=== PATIENT | female | born 1975 | race African-American/Black ===

== ENCOUNTER 2016-05-21 10:32 | Emergency (ER) | payer BC, OTHER ==
[~2016-05-21] VITALS: Ht 172.7 cm; Wt 153.3 kg
[2016-05-21 10:50] VITALS: BP 169/120
[2016-05-21] MEDS ORDERED: IBUPROFEN 800 MG TABLET. PO ONE (11:45)
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
[2016-05-21] MEDS ORDERED: CYCL10TA2 PO (12:12)
== END 2016-05-21 12:21 | disposition home or self-care (01) ==
LOC: ER 10:32
DX: M54.5 Low back pain (principal); M25.562 Pain in left knee; M25.561 Pain in right knee; M54.6 Pain in thoracic spine; V89.2XXA Person injured in unspecified motor-vehicle accident, traffic, initial encounter; Y93.89 Activity, other specified; Y92.410 Unspecified street and highway as the place of occurrence of the external cause; Y99.8 Other external cause status
CPT/HCPCS: 73564; 99284

== ENCOUNTER 2017-04-19 06:16 | Inpatient (IN) | payer BC, OTHER ==
[2017-04-19] VITALS (13 sets, daily range): BP systolic 111–136; BP diastolic 54–83
[~2017-04-19] VITALS: Ht 175.3 cm; Wt 159.7 kg
[~2017-04-19 06:16] MED LIST: CYCL10TA2 PO
[2017-04-19] MEDS: fentaNYL PF VIAL 100 MCG/2 ML VIAL IV PRN ×6 (06:54→16:19)
[2017-04-19] MEDS ORDERED: KETOROLAC 30 MG/ML INJ. IV ONE ×2 (07:00→21:30)
[2017-04-19] MEDS ORDERED: ONDANSETRON PF 4 MG/2 ML VIAL. IV ONE (07:00)
[2017-04-19] MEDS ORDERED: IV NORMAL SALINE 1000ML BAG 1,000 ML IV ONE ×2 (07:00→10:45)
[2017-04-19 07:01] LABS: CALCIUM 9.3 mg/dL (8.5-10.1); CREATININE 0.8 mg/dL (0.6-1.0); GFR 96.1; POTASSIUM 3.9 mmol/L (3.5-5.1)
[2017-04-19 07:06] LABS: ALBUMIN 3.6 g/dL (3.4-5.0); ALBUMIN/GLOBULIN RATIO 0.9 (1.0-1.7); TOTAL BILIRUBIN 0.4 mg/dL (0.2-1.0); TOTAL PROTEIN 7.8 g/dL (6.4-8.2)
[2017-04-19 07:08] LABS: BASO # 0.1 x10^3/uL (0.0-0.2); BASO % 1 % (0-3); EOS % 3 % (0-3); HEMATOCRIT 44.9 % (36.0-47.0); HEMOGLOBIN 14.5 g/dL (12.0-15.5); LYMPH # 3.2 x10^3/uL (1.0-4.8); LYMPH % 22 % (24-48); MEAN CORPUSCULAR HEMOGLOBIN 28 pg (25-35); MEAN CORPUSCULAR HGB CONC 32 g/dL (31-37); MEAN CORPUSCULAR VOLUME 86 fL (79-100); MONO % 5 % (0-9); NEUT % 70 % (31-73); PLATELET COUNT 332 x10^3/uL (140-400); RED BLOOD COUNT 5.22 x10^6/uL (3.50-5.40); RED CELL DISTRIBUTION WIDTH 14.9 % (11.5-14.5); WHITE BLOOD COUNT 14.5 x10^3/uL (4.0-11.0)
[2017-04-19 07:39] LABS: BILIRUBIN,URINE NEGATIVE (NEG); GLUCOSE,URINE NEGATIVE (NEG); NITRITE,URINE NEGATIVE (NEG); PH,URINE 6.5; PROTEIN,URINE NEGATIVE (NEG-TRACE); UROBILINOGEN,URINE 0.2 mg/dL (0.2 mg/dL)
--- NOTE | 2017-04-19 07:43 | RAD ---
EXAM: ABDOMEN LTD HISTORY: RUQ PAIN COMPARISON: None. TECHNIQUE: Transverse and longitudinal sonography of the right upper quadrant is performed. FINDINGS: The pancreas is obscured by overlying bowel gas. IVC is patent. Liver is not entirely visualized, although demonstrates increased echogenicity suggesting steatosis. No focal liver lesion is seen within the provided images and visualized liver. Main portal vein demonstrates normal directional flow. The gallbladder contains a 2.8 cm calcified gallstone within the neck with posterior shadowing, does not appear mobile with repositioning of the patient. The gallbladder is not overly distended, however a gallbladder wall thickness of 5 mm is demonstrated. No pericholecystic free fluid is seen. Common bile duct measures 4 mm in diameter. Right kidney measures 11.4 x 4.5 x 5.5 cm, without evidence of hydronephrosis. No free fluid is seen within the provided images. IMPRESSION: 1. Calcified gallstone near the neck of the gallbladder, with thickened gallbladder wall, suggests cholecystitis. No pericholecystic fluid present. 2. Hepatic steatosis is suggested. Electronically signed by: Nanette Solo MD (04/19/2017 7:39 AM) [facility]
[2017-04-19 07:56] LABS: BACTERIA,URINE 0 /HPF (0-FEW); RBC,URINE 0 /HPF (0-2); SQUAMOUS EPITHELIAL CELL,UR MOD /LPF; WBC,URINE 0 /HPF (0-4)
[2017-04-19] MEDS ORDERED: PIPERACILLIN/TAZO IV Push 4.5 GM VIAL. IVP ONE (08:30)
[2017-04-19] MEDS ORDERED: PIPERACILLIN/TAZOBACTAM 4.5 GM in IV NORMAL SALINE 100ML 100 ML IV ONE (08:30)
[2017-04-19] MEDS ORDERED: ONDANSETRON PF 4 MG/2 ML VIAL. IV PRN ×3 (08:45→16:15)
[2017-04-19] MEDS: MORPHINE SULFATE 4 MG/ML DISP.SYRIN. IV PRN ×2 (09:36→16:01)
--- NOTE | 2017-04-19 10:38 | PDOC2 ---
CONSULT Date of Consult Date of Consult DATE: 04/19/17 TIME: 10:32 Reason for Consult Reason for Consult: RUQ pain Referring Physician Referring Physician: IPC Identification/Chief Complaint Chief Complaint increasing RUQ pain, nausea, vomiting Problems: Source Source: Chart review, Patient History of Present Illness Reason for Visit: Blayne is a 42 yo obese female who a couple of months ago presented to the ED with RUQ pain and nausea. Her evaluation revealed gall stones. Last night she began having increased pain. She returned to the ED and US confirmed the stones and showed some thickening of the gall bladder wall. We are asked to see her for cholecystectomy Past Surgical History Past Surgical History: Current Problem List Problem List Problems Medical Problems: (1) Acute cholecystitis Status: Acute Current Medications Current Medications Current Medications Sodium Chloride 1,000 ml @ 1,000 mls/hr 1X ONCE IV Last administered on 04/19 06:58; Start 04/19/17 at 07:00; Stop 04/19/17 at 07:59; Status DC Ondansetron HCl (Zofran) 4 mg 1X ONCE IV Last administered on 04/19/17 06:58 ; Start 04/19/17 at 07:00; Stop 04/19/17 at 07:01; Status DC Ketorolac Tromethamine (Toradol) 30 mg 1X ONCE IV Last administered on 06:58; Start 04/19/17 at 07:00; Stop 04/19/17 at 07:01; Status DC Fentanyl Citrate (Fentanyl 2ml Vial) 50 mcg PRN Q15MIN PRN IV PAIN GREATER THAN 3/10 Last administered on 04/19/17 07:52; Start 04/19/17 at 06:45; Stop 04/20/17 at 06:44 Piperacillin Sod/ Tazobactam Sod 4.5 gm/Sodium Chloride 100 ml @ 200 mls/hr 1X ONCE IV ; Start 04/19/17 at 08:30; Stop 04/19/17 at 08:59; Status UNV Piperacillin Sod/ Tazobactam Sod (Zosyn) 4.5 gm 1X ONCE IVP Last administered on 04/19/17 08:44; Start 04/19/17 at 08:30; Stop 04/19/17 at 08:31; Status DC Ondansetron HCl (Zofran) 4 mg PRN Q8HRS PRN IV NAUSEA/VOMITING Last administered on 04/19/17 08:54; Start 04/19/17 at 08:45; Stop 04/20/17 at 08 :44 Morphine Sulfate 4 mg PRN Q2HR PRN IV PAIN Last administered on 04/19/17 09: 36; Start 04/19/17 at 08:45; Stop 04/20/17 at 08:44 Active Scripts Active Cyclobenzaprine Hcl 10 Mg Tablet 10 Mg PO TID Allergies Allergies: Coded Allergies: No Known Drug Allergies (Unverified , 05/21/16) ROS Review of System negative with exception of present complaints Gastrointestinal: Yes Nausea, Yes Abdominal Pain Physical Exam General: Alert, Oriented X3, No acute distress, Other (rates pain as a "7") HEENT: Atraumatic Lungs: Normal air movement Heart: Regular rate Abdomen: Other (obese, soft, mildly TTP in the RUQ) Skin: No significant lesion Vitals VITALS Vital Signs Date Time Temp Pulse Resp B/P (MAP) Pulse Ox O2 Delivery O2 Flow Rate FiO2 04/19/17 10:06 16 98 Room Air 04/19/17 10:04 97.7 63 136/80 (98) 97.7 Labs Labs Laboratory Tests Test 04/19/17 06:43 04/19/17 07:30 White Blood Count 14.5 x10^3/uL (4.0-11.0) Red Blood Count 5.22 x10^6/uL (3.50-5.40) Hemoglobin 14.5 g/dL (12.0-15.5) Hematocrit 44.9 % (36.0-47.0) Mean Corpuscular Volume 86 fL (79-100) Mean Corpuscular Hemoglobin 28 pg (25-35) Mean Corpuscular Hemoglobin Concent 32 g/dL (31-37) Red Cell Distribution Width 14.9 % (11.5-14.5) Platelet Count 332 x10^3/uL (140-400) Neutrophils (%) (Auto) 70 % (31-73) Lymphocytes (%) (Auto) 22 % (24-48) Monocytes (%) (Auto) 5 % (0-9) Eosinophils (%) (Auto) 3 % (0-3) Basophils (%) (Auto) 1 % (0-3) Neutrophils # (Auto) 10.1 x10^3uL (1.8-7.7) Lymphocytes # (Auto) 3.2 x10^3/uL (1.0-4.8) Monocytes # (Auto) 0.7 x10^3/uL (0.0-1.1) Eosinophils # (Auto) 0.4 x10^3/uL (0.0-0.7) Basophils # (Auto) 0.1 x10^3/uL (0.0-0.2) Sodium Level 144 mmol/L (136-145) Potassium Level 3.9 mmol/L (3.5-5.1) Chloride Level 105 mmol/L (98-107) Carbon Dioxide Level 30 mmol/L (21-32) Anion Gap 9 (6-14) Blood Urea Nitrogen 15 mg/dL (7-20) Creatinine 0.8 mg/dL (0.6-1.0) Estimated GFR (Cockcroft-Gault) 96.1 BUN/Creatinine Ratio 19 (6-20) Glucose Level 103 mg/dL (70-99) Calcium Level 9.3 mg/dL (8.5-10.1) Total Bilirubin 0.4 mg/dL (0.2-1.0) Aspartate Amino Transf (AST/SGOT) 13 U/L (15-37) Alanine Aminotransferase (ALT/SGPT) 19 U/L (14-59) Alkaline Phosphatase 86 U/L (46-116) Troponin I Quantitative < 0.017 ng/mL (0.000-0.055) Total Protein 7.8 g/dL (6.4-8.2) Albumin 3.6 g/dL (3.4-5.0) Albumin/Globulin Ratio 0.9 (1.0-1.7) Lipase 77 U/L (73-393) Urine Collection Type Unknown Urine Color Yellow Urine Clarity Turbid Urine pH 6.5 Urine Specific [place] 1.020 Urine Protein Negative mg/dL (NEG-TRACE) Urine Glucose (UA) Negative mg/dL (NEG) Urine Ketones (Stick) Negative mg/dL (NEG) Urine Blood Trace (NEG) Urine Nitrite Negative (NEG) Urine Bilirubin Negative (NEG) Urine Urobilinogen Dipstick 0.2 mg/dL (0.2 mg/dL) Urine Leukocyte Esterase Negative (NEG) Urine RBC 0 /HPF (0-2) Urine WBC 0 /HPF (0-4) Urine Squamous Epithelial Cells Mod /LPF Urine Bacteria 0 /HPF (0-FEW) Laboratory Tests Test 04/19/17 06:43 04/19/17 07:30 White Blood Count 14.5 x10^3/uL (4.0-11.0) Red Blood Count 5.22 x10^6/uL (3.50-5.40) Hemoglobin 14.5 g/dL (12.0-15.5) Hematocrit 44.9 % (36.0-47.0) Mean Corpuscular Volume 86 fL (79-100) Mean Corpuscular Hemoglobin 28 pg (25-35) Mean Corpuscular Hemoglobin Concent 32 g/dL (31-37) Red Cell Distribution Width 14.9 % (11.5-14.5) Platelet Count 332 x10^3/uL (140-400) Neutrophils (%) (Auto) 70 % (31-73) Lymphocytes (%) (Auto) 22 % (24-48) Monocytes (%) (Auto) 5 % (0-9) Eosinophils (%) (Auto) 3 % (0-3) Basophils (%) (Auto) 1 % (0-3) Neutrophils # (Auto) 10.1 x10^3uL (1.8-7.7) Lymphocytes # (Auto) 3.2 x10^3/uL (1.0-4.8) Monocytes # (Auto) 0.7 x10^3/uL (0.0-1.1) Eosinophils # (Auto) 0.4 x10^3/uL (0.0-0.7) Basophils # (Auto) 0.1 x10^3/uL (0.0-0.2) Sodium Level 144 mmol/L (136-145) Potassium Level 3.9 mmol/L (3.5-5.1) Chloride Level 105 mmol/L (98-107) Carbon Dioxide Level 30 mmol/L (21-32) Anion Gap 9 (6-14) Blood Urea Nitrogen 15 mg/dL (7-20) Creatinine 0.8 mg/dL (0.6-1.0) Estimated GFR (Cockcroft-Gault) 96.1 BUN/Creatinine Ratio 19 (6-20) Glucose Level 103 mg/dL (70-99) Calcium Level 9.3 mg/dL (8.5-10.1) Total Bilirubin 0.4 mg/dL (0.2-1.0) Aspartate Amino Transf (AST/SGOT) 13 U/L (15-37) Alanine Aminotransferase (ALT/SGPT) 19 U/L (14-59) Alkaline Phosphatase 86 U/L (46-116) Troponin I Quantitative < 0.017 ng/mL (0.000-0.055) Total Protein 7.8 g/dL (6.4-8.2) Albumin 3.6 g/dL (3.4-5.0) Albumin/Globulin Ratio 0.9 (1.0-1.7) Lipase 77 U/L (73-393) Urine Collection Type Unknown Urine Color Yellow Urine Clarity Turbid Urine pH 6.5 Urine Specific [place] 1.020 Urine Protein Negative mg/dL (NEG-TRACE) Urine Glucose (UA) Negative mg/dL (NEG) Urine Ketones (Stick) Negative mg/dL (NEG) Urine Blood Trace (NEG) Urine Nitrite Negative (NEG) Urine Bilirubin Negative (NEG) Urine Urobilinogen Dipstick 0.2 mg/dL (0.2 mg/dL) Urine Leukocyte Esterase Negative (NEG) Urine RBC 0 /HPF (0-2) Urine WBC 0 /HPF (0-4) Urine Squamous Epithelial Cells Mod /LPF Urine Bacteria 0 /HPF (0-FEW) Images Images US reviewed Assessment/Plan Assessment/Plan cholelithiasis with acute cholecystitis for l/s lloyd today Explained risks to Blayne and her including but not limited to bleeding, infection, injury to bowel, liver or bile ducts with resultant bile leak or bile blockage. Also possible need for an "open" procedure or diarrhea post op. She will proceed. Thanks for consult MOLLY WHALEN MD Apr 19, 2017 10:38
[2017-04-19] MEDS: ceFAZolin SODIUM 3 GM in IV DEXTROSE 5% 100 ML IV PRN ×3 (11:40→13:40)
[2017-04-19] MEDS ORDERED: ROCURONIUM 50 MG/5 ML VIAL. ONE (12:49)
[2017-04-19] MEDS ORDERED: fentaNYL PF VIAL 100 MCG/2 ML VIAL ONE ×3 (12:49→16:08)
[2017-04-19] MEDS ORDERED: LIDOCAINE 2% PF Vial for OR 5 ML VIAL. ONE ×2 (12:49→15:18)
[2017-04-19] MEDS ORDERED: ONDANSETRON PF 4 MG/2 ML VIAL. ONE (12:49)
[2017-04-19] MEDS ORDERED: SEVOFLURANE 31 TO 60 MINUTES. IH ONE (12:49)
[2017-04-19] MEDS ORDERED: PROPOFOL 20 ML IV ONE (12:50)
[2017-04-19] MEDS ORDERED: DEXAMETHASONE SOD PHOS 20 MG/5 ML VIAL. ONE (12:50)
[2017-04-19] MEDS ORDERED: BUPIVAC MPF-EPI 0.5%-1:200000 30 ML VIAL. ONE (13:35)
[2017-04-19] MEDS ORDERED: IOHEXOL 300 MG/ML 100ML VIAL. ONE (13:35)
[2017-04-19] MEDS ORDERED: GLUCAGON,HUMAN RECOMBINANT 1 MG/ML VIAL. ONE (13:35)
[2017-04-19] MEDS ORDERED: SURGICEL HEMOSTAT 4X8 EACH. ONE (13:36)
[2017-04-19] MEDS ORDERED: GLYCOPYRROLATE 1 MG/5 ML VIAL. ONE (14:21)
[2017-04-19] MEDS ORDERED: NEOSTIGMINE 10 MG/10 ML VIAL. ONE (14:21)
--- NOTE | 2017-04-19 14:38 | PHYS DOC ---
Past Medical History Past Medical History: No Pertinent History Past Surgical History: , Tubal ligation, Other Additional Past Surgical Histo: LEFT ACL REPAIR Alcohol Use: Occasionally Drug Use: None Adult General Chief Complaint Chief Complaint: ABDOMINAL PAIN HPI HPI Patient is a 42 year old female who presents with abdominal pain. The patient reports waking up overnight with severe right upper quadrant & epigastric pain. She vomited once and still feels nauseated. She denies fevers or chills, hematemesis, diarrhea or constipation, hematochezia or melena, dysuria or hematuria. Reports previous history of similar symptoms and was told that she had gallstones but had not been able to follow-up with surgery or schedule cholecystectomy. Denies past medical history, history of and tubal ligation. PCP is at the [facility]. Review of Systems Review of Systems Constitutional: Denies fever or chills HENT: Denies nasal congestion or sore throat Respiratory: Denies cough or shortness of breath Cardiovascular: Denies chest pain or edema GI: Reports abdominal pain, nausea, vomiting, denies bloody stools or diarrhea : Denies dysuria or hematuria Musculoskeletal: Denies back pain or joint pain Integument: Denies rash or skin lesions Neurologic: Denies headache, focal weakness or sensory changes All other systems were reviewed and found to be within normal limits, except as documented in this note. Current Medications Current Medications Current Medications Medications (Trade) Dose Ordered Sig/Wes Start Time Stop Time Status Last Admin Dose Admin Bupivacaine HCl/ Epinephrine Bitart (Sensorcain-Mpf Epi 0.5%-1:033170) 30 ml STK-MED ONCE 04/19/17 13:35 04/19/17 13:36 DC 04/19/17 13:59 10 ML Cefazolin Sodium 3 gm/Dextrose 100 ml @ 200 mls/hr 1X PREOP PRN 04/19/17 11:30 04/20/17 11:29 04/19/17 11:40 200 MLS/HR Cellulose 1 each STK-MED ONCE 04/19/17 13:36 04/19/17 13:37 DC Dexamethasone Sodium Phosphate (Decadron) 20 mg STK-MED ONCE 04/19/17 12:50 04/19/17 12:51 DC Fentanyl Citrate (Fentanyl 2ml Vial) 100 mcg STK-MED ONCE 04/19/17 14:21 12/23/17 14:22 DC Glucagon (Glucagen) 1 mg STK-MED ONCE 04/19/17 13:35 04/19/17 13:36 DC Glycopyrrolate (Robinul) 1 mg STK-MED ONCE 04/19/17 14:21 04/19/17 14:22 DC Iohexol (Omnipaque 300 Mg/ml) 100 ml STK-MED ONCE 04/19/17 13:35 04/19/17 13:36 DC 04/19/17 13:59 10 ML Ketorolac Tromethamine (Toradol) 30 mg 1X ONCE 04/19/17 07:00 04/19/17 07:01 DC 04/19/17 06:58 30 MG Lidocaine HCl (Lidocaine Pf 2% Vial) 5 ml STK-MED ONCE 04/19/17 12:49 04/19/17 12:50 DC Morphine Sulfate 4 mg PRN Q2HR PRN 04/19/17 08:45 04/20/17 08:44 04/19/17 09:36 4 MG Neostigmine Methylsulfate (Bloxiverz) 10 mg STK-MED ONCE 04/19/17 14:21 04/19/17 14:22 DC Ondansetron HCl (Zofran) 4 mg STK-MED ONCE 04/19/17 12:49 04/19/17 12:50 DC Piperacillin Sod/ Tazobactam Sod (Zosyn) 4.5 gm 1X ONCE 04/19/17 08:30 04/19/17 08:31 DC 04/19/17 08:44 4.5 GM Piperacillin Sod/ Tazobactam Sod 4.5 gm/Sodium Chloride 100 ml @ 200 mls/hr 1X ONCE 04/19/17 08:30 04/19/17 08:59 UNV Propofol 20 ml @ As Directed STK-MED ONCE 04/19/17 12:50 04/19/17 12:51 DC Rocuronium [place] (Zemuron) 50 mg STK-MED ONCE 04/19/17 12:49 04/19/17 12:50 DC Sevoflurane (Ultane) 30 ml STK-MED ONCE 04/19/17 12:49 04/19/17 12:50 DC Sodium Chloride 1,000 ml @ 125 mls/hr 1X ONCE 04/19/17 10:45 04/19/17 18:44 04/19/17 11:03 125 MLS/HR Allergies Allergies Allergies Coded Allergies Type Severity Reaction Last Updated Verified No Known Drug Allergies 05/21/16 No Physical Exam Physical Exam Constitutional: Morbidly obese, no acute distress, non-toxic appearance. HENT: Normocephalic, atraumatic, bilateral external ears normal, oropharynx moist, nose normal. Eyes: conjunctiva normal, no discharge. Neck: supple, no stridor. Cardiovascular: RRR, no murmurs, no edema. Lungs & Thorax: LCTAB, no wheezing, no respiratory distress. Abdomen: soft, right upper quadrant and epigastric tenderness without rebound or guarding, no masses or pulsatile masses, nondistended. Skin: Warm, dry, no erythema, no rash. Back: No CVA tenderness. Extremities: No tenderness, no edema. Neurologic: Alert and oriented X 3, no focal deficits noted. Psychologic: Affect normal, judgement normal, mood normal. Current Patient Data Vital Signs Vital Signs Date Time Temp Pulse Resp B/P (MAP) Pulse Ox O2 Delivery O2 Flow Rate FiO2 04/19/17 13:01 97.2 77 20 144/97 100 Room Air 97.2 Lab Values Laboratory Tests Test 04/19/17 06:43 04/19/17 07:30 White Blood Count 14.5 x10^3/uL (4.0-11.0) H Red Blood Count 5.22 x10^6/uL (3.50-5.40) Hemoglobin 14.5 g/dL (12.0-15.5) Hematocrit 44.9 % (36.0-47.0) Mean Corpuscular Volume 86 fL (79-100) Mean Corpuscular Hemoglobin 28 pg (25-35) Mean Corpuscular Hemoglobin Concent 32 g/dL (31-37) Red Cell Distribution Width 14.9 % (11.5-14.5) H Platelet Count 332 x10^3/uL (140-400) Neutrophils (%) (Auto) 70 % (31-73) Lymphocytes (%) (Auto) 22 % (24-48) L Monocytes (%) (Auto) 5 % (0-9) Eosinophils (%) (Auto) 3 % (0-3) Basophils (%) (Auto) 1 % (0-3) Neutrophils # (Auto) 10.1 x10^3uL (1.8-7.7) H Lymphocytes # (Auto) 3.2 x10^3/uL (1.0-4.8) Monocytes # (Auto) 0.7 x10^3/uL (0.0-1.1) Eosinophils # (Auto) 0.4 x10^3/uL (0.0-0.7) Basophils # (Auto) 0.1 x10^3/uL (0.0-0.2) Sodium Level 144 mmol/L (136-145) Potassium Level 3.9 mmol/L (3.5-5.1) Chloride Level 105 mmol/L (98-107) Carbon Dioxide Level 30 mmol/L (21-32) Anion Gap 9 (6-14) Blood Urea Nitrogen 15 mg/dL (7-20) Creatinine 0.8 mg/dL (0.6-1.0) Estimated GFR (Cockcroft-Gault) 96.1 BUN/Creatinine Ratio 19 (6-20) Glucose Level 103 mg/dL (70-99) H Calcium Level 9.3 mg/dL (8.5-10.1) Total Bilirubin 0.4 mg/dL (0.2-1.0) Aspartate Amino Transferase (AST) 13 U/L (15-37) L Alanine Aminotransferase (ALT) 19 U/L (14-59) Alkaline Phosphatase 86 U/L (46-116) Troponin I Quantitative < 0.017 ng/mL (0.000-0.055) Total Protein 7.8 g/dL (6.4-8.2) Albumin 3.6 g/dL (3.4-5.0) Albumin/Globulin Ratio 0.9 (1.0-1.7) L Lipase 77 U/L (73-393) Urine Collection Type Unknown Urine Color Yellow Urine Clarity Turbid Urine pH 6.5 Urine Specific [place] 1.020 Urine Protein Negative mg/dL (NEG-TRACE) Urine Glucose (UA) Negative mg/dL (NEG) Urine Ketones (Stick) Negative mg/dL (NEG) Urine Blood Trace (NEG) Urine Nitrite Negative (NEG) Urine Bilirubin Negative (NEG) Urine Urobilinogen Dipstick 0.2 mg/dL (0.2 mg/dL) Urine Leukocyte Esterase Negative (NEG) Urine RBC 0 /HPF (0-2) Urine WBC 0 /HPF (0-4) Urine Squamous Epithelial Cells Mod /LPF Urine Bacteria 0 /HPF (0-FEW) Laboratory Tests 04/19/17 06:43 Laboratory Tests 04/19/17 06:43 EKG EKG Interpreted by me: Normal sinus rhythm rate 75, no acute ST or T wave changes, normal intervals, no ectopy.[] Radiology/Procedures Radiology/Procedures PROCEDURE: ABDOMEN LTD EXAM: ABDOMEN LTD HISTORY: RUQ PAIN COMPARISON: None. TECHNIQUE: Transverse and longitudinal sonography of the right upper quadrant is performed. FINDINGS: The pancreas is obscured by overlying bowel gas. IVC is patent. Liver is not entirely visualized, although demonstrates increased echogenicity suggesting steatosis. No focal liver lesion is seen within the provided images and visualized liver. Main portal vein demonstrates normal directional flow. The gallbladder contains a 2.8 cm calcified gallstone within the neck with posterior shadowing, does not appear mobile with repositioning of the patient. The gallbladder is not overly distended, however a gallbladder wall thickness of 5 mm is demonstrated. No pericholecystic free fluid is seen. Common bile duct measures 4 mm in diameter. Right kidney measures 11.4 x 4.5 x 5.5 cm, without evidence of hydronephrosis. No free fluid is seen within the provided images. IMPRESSION: 1. Calcified gallstone near the neck of the gallbladder, with thickened gallbladder wall, suggests cholecystitis. No pericholecystic fluid present. 2. Hepatic steatosis is suggested. Electronically signed by: Kristen Solo MD (04/19/2017 7:39 AM) [facility] DICTATED and SIGNED BY: KRISTEN SOLO MD DATE: 04/19/17 0736[] Course & Med Decision Making Course & Med Decision Making Pertinent Labs and Imaging studies reviewed. (See chart for details) The patient presents with abdominal pain and vomiting. Gave IV fluids, Zofran, pain medication. Labs show leukocytosis, normal LFTs, normal lipase. Ultrasound consistent with acute cholecystitis. Administered Zosyn. Consulted with Dr. Baez who plans to take the patient to surgery today. Will keep nothing by mouth. Discussed with Dr. freedman who agrees to admit to inpatient status. Patient aware of plan and agrees. She is admitted in stable condition. [] Dragon Disclaimer Dragon Disclaimer This electronic medical record was generated, in whole or in part, using a voice recognition dictation system. Departure Departure Impression: Primary Impression: Acute cholecystitis Disposition: ADMITTED INPATIENT Admitting Physician: Bhavya Freedman Condition: STABLE LINDSAY WHITE MD Apr 19, 2017 14:38
--- NOTE | 2017-04-19 15:35 | RAD ---
CHOLANGIOGRAM INTRAOPERATIVE Clinical Indication: ACUTE CHOLECYSTITIS Comparison: None. Findings: Fluoroscopy provided by the technologist. Total fluoroscopy time 11 seconds. 3 fluoroscopic spot images. Injection of contrast into cystic duct remnant. There is opacification of intrahepatic and extrahepatic bile ducts. No filling defect is seen in the common bile duct. There is spillage into the duodenum. IMPRESSION: No filling defect in the common bile duct.
[2017-04-19] MEDS ORDERED: IV RINGERS,LACTATED 1000ML 1,000 ML IV SCH (15:52)
[2017-04-19] MEDS ORDERED: HYDROmorphone 2 MG/ML VIAL IV PRN (16:00)
[2017-04-19] MEDS ORDERED: MORPHINE SULFATE 2 MG/ML DISP.SYRIN. IV PRN (16:00)
[2017-04-19] MEDS ORDERED: fentaNYL PF VIAL 100 MCG/2 ML VIAL IV PRN ×2 (16:00)
[2017-04-19] MEDS ORDERED: PROCHLORPERAZINE 10 MG/2 ML VIAL. IV PRN (16:00)
[2017-04-19] MEDS ORDERED: LIDOCAINE 1% PF 2 ML VIAL. ID PRN (16:00)
[2017-04-19] MEDS ORDERED: oxyCODONE/APAP 5/325 1 TAB TABLET PO PRN (16:15)
[2017-04-19] MEDS ORDERED: diphenhydrAMINE 50 MG/ML VIAL IV PRN (16:15)
[2017-04-19] MEDS ORDERED: diphenhydrAMINE HCL 25 MG CAPSULE PO PRN (16:15)
[2017-04-19] MEDS ORDERED: 0.9 % SODIUM CHLORIDE 10 ML DISP.SYRIN. IV PRN (16:15)
[2017-04-19] MEDS ORDERED: DEXTROSE 50% 25 GM / 50ML DISP.SYRIN. IV PRN (16:15)
--- NOTE | 2017-04-19 16:23 | PDOC ---
BRIEF OPERATIVE NOTE Date: Apr 19, 2017 Pre-Op Diagnosis cholelithiasis with acute cholecystitis Post-Op Diagnosis same Procedure Performed l/s cholecystectomy with cholangiograms Surgeon Nestor Anesthesia Type: General Blood Loss 200cc IV Fluid 1700cc Specimens Obtained gall bladder Findings acute/chronic cholecystitis, normal grams, short cystic duct, rich blood supply Complications none MOLLY WHALEN MD Apr 19, 2017 16:23
[2017-04-19] MEDS: POTASSIUM CL 20MEQ-0.45% NACL 1,000 ML IV SCH (17:02)
[2017-04-19] MEDS: HYDROmorphone 2 MG/ML VIAL IV PRN (17:03)
--- NOTE | 2017-04-19 20:30 | OP ---
DATE OF SURGERY: 04/19/2017 PREOPERATIVE DIAGNOSIS: Cholelithiasis with acute cholecystitis. POSTOPERATIVE DIAGNOSIS: Cholelithiasis with acute cholecystitis. PROCEDURE: Laparoscopic cholecystectomy with cholangiogram. SURGEON: Jabari Whalen MD ANESTHESIA: General endotracheal. BLOOD LOSS: 200 mL. INTRAVENOUS FLUID: 1700 mL. INDICATIONS: The patient is an obese (BMI of 51) female with right upper quadrant pain and known cholelithiasis. Her ultrasound earlier showed a possible impacted stone in the neck of the gallbladder. She is brought for cholecystectomy. OPERATIVE FINDINGS: The liver was generous and smooth. The gallbladder was acutely/chronically inflamed with a shortened cystic duct. Visual inspection of the remainder of the abdomen showed only some omental adhesions in the low midline from previous sections. DESCRIPTION OF PROCEDURE: The patient brought to the operating suite, given a general endotracheal anesthetic and the abdomen prepped and draped in usual sterile fashion. A supraumbilical incision was infiltrated with local anesthetic, incised and a 5 mm Visiport used to safely gain access into the abdominal cavity (a 150 mm port was used). Pneumoperitoneum established, camera inserted and inspection carried out with results as noted above. With the table in reverse Trendelenburg rolled to the left, the epigastric, midclavicular, and lateral ports were placed under direct vision. The gallbladder was grasped with a bulldog grasper and retracted superolaterally. Adhesions were taken down carefully to expose the gallbladder, taking care to avoid injury to the adjacent bowel. The shortened cystic duct and the cystic artery were identified. The duct was clipped on the gallbladder side. Cholangiograms were made. These were normal. In light of this, the catheter was removed and the cystic duct was clipped x 2, taking care to avoid injury or compromise of the common duct. The cystic artery was carefully freed from the bile duct, isolated, clipped and divided. The gallbladder was then carefully freed off the common duct and from the gallbladder fossa. There were vessels encountered along the fossa, which were controlled with medium large clips. We were able to control the blood supply in its entirety to the gallbladder and the gallbladder was freed from the bed and placed in an EndoCatch bag. Good hemostasis was present. To assure no further bleeding, the gallbladder bed was treated with FloSeal and a piece of Surgicel. A 19-[place] round Eduard drain was brought through the epigastric port, out the lateral port, sewn on skin with a silk stitch and left in the subhepatic space for postoperative drainage. Again, we checked the fossa and it appeared to be dry. Table returned to level. Gallbladder delivered through the epigastric incision. Epigastric incision closed with interrupted 0 Vicryl suture. No bleeding seen from the epigastric closure, from the drain site or from the midclavicular port site after its removal. Abdomen decompressed, camera slowly removed, no bleeding seen. Skin incisions closed with skin tamiko. Sterile dressings applied. The patient awakened from anesthetic and taken to the recovery room in satisfactory condition. JABARI WHALEN MD DR: SHEKHAR/celena JOB#: [id number] / [id number]
[2017-04-19] MEDS: DOCUSATE SODIUM 100 MG CAPSULE. PO SCH (20:38)
--- NOTE | 2017-04-19 21:05 | EKG ---
[facility] [address] [place] [id number] Test Date: 2017-04-19 Test Time: 06:47:06 Pat Name: DARREN DOSHI Department: Room: Gender: F Community Health Counselor: : 1975 Requested By: LINDSAY WHITE Order Number: [id number] Reading MD: Measurements Intervals Wilson Rate: 75 P: 33 DC: 166 QRS: 24 QRSD: 80 T: 15 QT: 370 QTc: 416 Interpretive Statements SINUS RHYTHM NO SPECIFIC ECG ABNORMALITIES RI6.01 No previous ECG available for comparison
--- NOTE | 2017-04-19 21:13 | PDOC1 ---
History and Physical Date of Admission Date of Admission DATE: 04/19/17 TIME: 21:08 Identification/Chief Complaint Chief Complaint abdominal pain Problems: Source Source: Chart review, Patient History of Present Illness History of Present Illness Ms. Fernandez, is a 42 year old female admit from ER with acute and severe abdominal pain. The patient reports waking up overnight with severe right upper quadrant & epigastric pain. IMaging showed acute lloyd, taken to the OR by Dr. Baez this AM pain this PM, pain 7/10, soreness, ongoing pain, not improved with 0.5 mg IV dilaudid hourly no nausea now, marked this AM. also denies fevers or chills, hematemesis, diarrhea or constipation, hematochezia or melena, dysuria or hematuria. prior similar symptoms, pain is now soreness, not acutely sharp Past Medical History Cardiovascular: No pertinent hx Pulmonary: No pertinent hx Heme/Onc: No pertinent hx Hepatobiliary: No pertinent hx Psych: No pertinent hx Musculoskeletal: low back pain ENT: No pertinent hx Renal/: No pertinent hx Past Surgical History Past Surgical History: Family History Family History: Hypertension Social History Smoke: No ALCOHOL: none Drugs: None Current Problem List Problem List Problems Medical Problems: (1) Acute cholecystitis Status: Acute (2) Acute cholecystitis Status: Acute Problems: Current Medications Current Medications Current Medications Sodium Chloride 1,000 ml @ 1,000 mls/hr 1X ONCE IV Last administered on 04/19 06:58; Start 04/19/17 at 07:00; Stop 04/19/17 at 07:59; Status DC Ondansetron HCl (Zofran) 4 mg 1X ONCE IV Last administered on 04/19/17 06:58 ; Start 04/19/17 at 07:00; Stop 04/19/17 at 07:01; Status DC Ketorolac Tromethamine (Toradol) 30 mg 1X ONCE IV Last administered on 06:58; Start 04/19/17 at 07:00; Stop 04/19/17 at 07:01; Status DC Fentanyl Citrate (Fentanyl 2ml Vial) 50 mcg PRN Q15MIN PRN IV PAIN GREATER THAN 3/10 Last administered on 04/19/17 07:52; Start 04/19/17 at 06:45; Stop 04/20/17 at 06:44 Piperacillin Sod/ Tazobactam Sod 4.5 gm/Sodium Chloride 100 ml @ 200 mls/hr 1X ONCE IV ; Start 04/19/17 at 08:30; Stop 04/19/17 at 08:59; Status UNV Piperacillin Sod/ Tazobactam Sod (Zosyn) 4.5 gm 1X ONCE IVP Last administered on 04/19/17 08:44; Start 04/19/17 at 08:30; Stop 04/19/17 at 08:31; Status DC Ondansetron HCl (Zofran) 4 mg PRN Q8HRS PRN IV NAUSEA/VOMITING Last administered on 04/19/17 08:54; Start 04/19/17 at 08:45; Stop 04/20/17 at 08 :44 Morphine Sulfate 4 mg PRN Q2HR PRN IV PAIN Last administered on 04/19/17 16: 01; Start 04/19/17 at 08:45; Stop 04/20/17 at 08:44 Cefazolin Sodium 3 gm/Dextrose 100 ml @ 200 mls/hr 1X PREOP PRN IV PER PROTOCOL Last administered on 04/19/17 13:40; Start 04/19/17 at 11:30; Stop 04/20/17 at 11:29 Fentanyl Citrate (Fentanyl 2ml Vial) 100 mcg PRN Q2HR PRN IV PAIN Last administered on 04/19/17 16:19; Start 04/19/17 at 10:45 Sodium Chloride 1,000 ml @ 125 mls/hr 1X ONCE IV Last administered on 11:03; Start 04/19/17 at 10:45; Stop 04/19/17 at 18:44; Status DC Rocuronium [place] (Zemuron) 50 mg STK-MED ONCE .ROUTE ; Start 04/19/17 at 12: 49; Stop 04/19/17 at 12:50; Status DC Fentanyl Citrate (Fentanyl 2ml Vial) 100 mcg STK-MED ONCE .ROUTE ; Start at 12:49; Stop 04/19/17 at 12:50; Status DC Sevoflurane (Ultane) 30 ml STK-MED ONCE IH ; Start 04/19/17 at 12:49; Stop at 12:50; Status DC Ondansetron HCl (Zofran) 4 mg STK-MED ONCE .ROUTE ; Start 04/19/17 at 12:49; Stop 04/19/17 at 12:50; Status DC Lidocaine HCl (Lidocaine Pf 2% Vial) 5 ml STK-MED ONCE .ROUTE ; Start 04/19/17 at 12:49; Stop 04/19/17 at 12:50; Status DC Dexamethasone Sodium Phosphate (Decadron) 20 mg STK-MED ONCE .ROUTE ; Start at 12:50; Stop 04/19/17 at 12:51; Status DC Propofol 20 ml @ As Directed STK-MED ONCE IV ; Start 04/19/17 at 12:50; Stop 04/19/17 at 12:51; Status DC Bupivacaine HCl/ Epinephrine Bitart (Sensorcain-Mpf Epi 0.5%-[id number]) 30 ml STK -MED ONCE .ROUTE Last administered on 04/19/17 13:59; Start 04/19/17 at 13: 35; Stop 04/19/17 at 13:36; Status DC Glucagon (Glucagen) 1 mg STK-MED ONCE .ROUTE ; Start 04/19/17 at 13:35; Stop 04/19/17 at 13:36; Status DC Iohexol (Omnipaque 300 Mg/ml) 100 ml STK-MED ONCE .ROUTE Last administered on 04/19/17 13:59; Start 04/19/17 at 13:35; Stop 04/19/17 at 13:36; Status DC Cellulose 1 each STK-MED ONCE .ROUTE Last administered on 04/19/17 13:59; Start 04/19/17 at 13:36; Stop 04/19/17 at 13:37; Status DC Neostigmine Methylsulfate (Bloxiverz) 10 mg STK-MED ONCE .ROUTE ; Start at 14:21; Stop 04/19/17 at 14:22; Status DC Fentanyl Citrate (Fentanyl 2ml Vial) 100 mcg STK-MED ONCE .ROUTE ; Start at 14:21; Stop 04/19/17 at 14:22; Status DC Glycopyrrolate (Robinul) 1 mg STK-MED ONCE .ROUTE ; Start 04/19/17 at 14:21; Stop 04/19/17 at 14:22; Status DC Lidocaine HCl (Lidocaine Pf 2% Vial) 5 ml STK-MED ONCE .ROUTE ; Start 04/19/17 at 15:18; Stop 04/19/17 at 15:19; Status DC Ondansetron HCl (Zofran) 4 mg PRN Q6HRS PRN IV NAUSEA/VOMITING; Start at 16:00; Stop 04/20/17 at 15:59 Fentanyl Citrate (Fentanyl 2ml Vial) 25 mcg PRN Q5MIN PRN IV MILD PAIN; Start 04/19/17 at 16:00; Stop 04/20/17 at 15:59 Fentanyl Citrate (Fentanyl 2ml Vial) 50 mcg PRN Q5MIN PRN IV MODERATE TO SEVERE PAIN; Start 04/19/17 at 16:00; Stop 04/20/17 at 15:59 Morphine Sulfate 1 mg PRN Q10MIN PRN IV SEVERE PAIN; Start 04/19/17 at 16:00; Stop 04/20/17 at 15:59 Ringer's Solution 1,000 ml @ 30 mls/hr Q24H IV ; Start 04/19/17 at 15:52; Stop 04/20/17 at 03:51 Lidocaine HCl (Xylocaine-Mpf 1% Vial) 2 ml 1X PRN PRN ID IV START; Start 04/19 at 16:00; Stop 04/20/17 at 15:59 Hydromorphone HCl (Dilaudid) 0.5 mg PRN Q10MIN PRN IV SEV PAIN, Second choice Last administered on 04/19/17t 20:44; Start 04/19/17 at 16:00; Stop 04/19/17 at 21:06; Status DC Prochlorperazine Edisylate (Compazine) 5 mg PACU PRN PRN IV NAUSEA, MRX1; Start 04/19/17 at 16:00; Stop 04/20/17 at 15:59 Fentanyl Citrate (Fentanyl 2ml Vial) 100 mcg STK-MED ONCE .ROUTE ; Start at 16:08; Stop 04/19/17 at 16:09; Status DC Diphenhydramine HCl (Benadryl) 25 mg PRN Q6HRS PRN PO ITCHING; Start 04/19/17 at 16:15 Diphenhydramine HCl (Benadryl) 25 mg PRN Q6HRS PRN IV ITCHING; Start 04/19/17 at 16:15 Enoxaparin Sodium (Lovenox 60mg Syringe) 60 mg Q12HR SQ ; Start 04/20/17 at 09: 00 Sodium Chloride (Normal Saline Flush) 3 ml QSHIFT PRN IV AFTER MEDS AND BLOOD DRAWS; Start 04/19/17 at 16:15 Potassium Chloride/Sodium Chloride 1,000 ml @ 100 mls/hr Q10H IV Last administered on 04/19/17 17:02; Start 04/19/17 at 16:06 Dextrose (Dextrose 50%-Water Syringe) 12.5 gm PRN Q15MIN PRN IV SEE COMMENTS; Start 04/19/17 at 16:15 Oxycodone/ Acetaminophen (Percocet 5/325) 1 tab PRN Q4HRS PRN PO MILD PAIN, 1ST CHOICE; Start 04/19/17 at 16:15 Oxycodone/ Acetaminophen (Percocet 5/325) 2 tab PRN Q4HRS PRN PO MODERATE PAIN , SEVERE PAIN; Start 04/19/17 at 16:15 Hydromorphone HCl (Dilaudid) 1 mg Q3HRS PRN IV PAIN Last administered on 17:03; Start 04/19/17 at 16:15 Docusate Sodium (Colace) 100 mg BID PO Last administered on 04/19/17 20:38; Start 04/19/17 at 21:00 Ondansetron HCl (Zofran) 4 mg PRN Q6HRS PRN IV NAUESA, 1ST CHOICE; Start 04/19 at 16:15 Hydromorphone HCl (Dilaudid) 1 mg PRN Q4HRS PRN IVP SEVERE PAIN; Start at 21:15 Ketorolac Tromethamine (Toradol) 30 mg 1X ONCE IV ; Start 04/19/17 at 21:15; Stop 04/19/17 at 21:16; Status UNV Active Scripts Active Cyclobenzaprine Hcl 10 Mg Tablet 10 Mg PO TID Allergies Allergies: Coded Allergies: No Known Drug Allergies (Unverified , 04/19/17) ROS General: No: Chills, Night Sweats, Fatigue, Malaise, Appetite, Other PSYCHOLOGICAL ROS: No: Anxiety, Behavioral Disorder, Concentration difficultie , Decreased libido, Depression, Disorientation, Hallucinations, Hostility, Irritablity, Memory difficulties, Mood Swings, Obsessive thoughts, Physical abuse, Sexual abuse, Sleep disturbances, Suicidal ideation, Other Eyes: No Blurry vision, No Decreased vision, No Double vision, No Dry eyes, No Excessive tearing, No Eye Pain, No Itchy Eyes, No Loss of vision, No Photophobia , No Scotomata, No Uses contacts, No Uses glasses, No Other HEENT: No: Heacaches, Visual Changes, Hearing change, Nasal congestion, Nasal discharge, Oral lesions, Sinus pain, Sore Throat, Epistaxis, Sneezing, Snoring, Tinnitus, Vertigo, Vocal changes, Other Hematological and Lymphatic: No: Bleeding Problems, Blood Clots, Blood Transfusions, Brusing, Night Sweats, Pallor, Swollen Lymph Nodes, Other Respiratory: No: Cough, Hemoptysis, Orthopnea, Pleuritic Pain, Shortness of breath, SOB with excertion, Sputum Changes, Stridor, Tachypnea, Wheezing, Other Cardiovascular: No Chest Pain, No Palpitations, No Orthopnea, No Paroxysmal Noc. Dyspnea, No Edema, No Lt Headedness, No Other Gastrointestinal: Yes Nausea, Yes Abdominal Pain Genitourinary: No Dysuria, No Frequency, No Incontinence, No Hematuria, No Retention, No Discharge, No Urgency, No Pain, No Flank Pain, No Other, No , No , No , No , No , No , No Musculoskeletal: Yes Joint Pain, No Gait Disturbance, No Joint Stiffness, No Joint Swelling, No Muscle Pain, No Muscular Weakness, No Pain In:, No Swelling In:, No Other Neurological: No Behavorial Changes, No Bowel/Bladder ControlChng, No Confusion , No Dizziness, No Gait Disturbance, No Headaches, No Impaired Coord/balance, No Memory Loss, No Numbness/Tingling, No Seizures, No Speech Problems, No Tremors, No Visual Changes, No Weakness, No Other Skin: Yes Dry Skin, No Eczema, No Hair Changes, No Lumps, No Mole Changes, No Mottling, No Nail Changes, No Pruritus, No Rash, No Skin Lesion Changes, No Other, No Acne Physical Exam General: Alert, Oriented X3, Cooperative, mild distress, moderate distress HEENT: EOMI, Mucous membr. moist/pink Lungs: Clear to auscultation, Normal air movement Heart: S1S2, no gallops, no murmurs Abdomen: Other (pain with deep inspiration, + sounds, noted tender) Extremities: No clubbing, No cyanosis, No edema, Normal pulses Skin: No breakdown, No significant lesion Neuro: Normal tone, Sensation intact Psych/Mental Status: Mood NL Vitals Vitals Vital Signs Date Time Temp Pulse Resp B/P (MAP) Pulse Ox O2 Delivery O2 Flow Rate FiO2 04/19/17 20:44 99 Nasal Cannula 2.0 04/19/17 20:36 18 Labs Labs Laboratory Tests Test 04/19/17 06:43 04/19/17 07:30 White Blood Count 14.5 x10^3/uL (4.0-11.0) Red Blood Count 5.22 x10^6/uL (3.50-5.40) Hemoglobin 14.5 g/dL (12.0-15.5) Hematocrit 44.9 % (36.0-47.0) Mean Corpuscular Volume 86 fL (79-100) Mean Corpuscular Hemoglobin 28 pg (25-35) Mean Corpuscular Hemoglobin Concent 32 g/dL (31-37) Red Cell Distribution Width 14.9 % (11.5-14.5) Platelet Count 332 x10^3/uL (140-400) Neutrophils (%) (Auto) 70 % (31-73) Lymphocytes (%) (Auto) 22 % (24-48) Monocytes (%) (Auto) 5 % (0-9) Eosinophils (%) (Auto) 3 % (0-3) Basophils (%) (Auto) 1 % (0-3) Neutrophils # (Auto) 10.1 x10^3uL (1.8-7.7) Lymphocytes # (Auto) 3.2 x10^3/uL (1.0-4.8) Monocytes # (Auto) 0.7 x10^3/uL (0.0-1.1) Eosinophils # (Auto) 0.4 x10^3/uL (0.0-0.7) Basophils # (Auto) 0.1 x10^3/uL (0.0-0.2) Sodium Level 144 mmol/L (136-145) Potassium Level 3.9 mmol/L (3.5-5.1) Chloride Level 105 mmol/L (98-107) Carbon Dioxide Level 30 mmol/L (21-32) Anion Gap 9 (6-14) Blood Urea Nitrogen 15 mg/dL (7-20) Creatinine 0.8 mg/dL (0.6-1.0) Estimated GFR (Cockcroft-Gault) 96.1 BUN/Creatinine Ratio 19 (6-20) Glucose Level 103 mg/dL (70-99) Calcium Level 9.3 mg/dL (8.5-10.1) Total Bilirubin 0.4 mg/dL (0.2-1.0) Aspartate Amino Transf (AST/SGOT) 13 U/L (15-37) Alanine Aminotransferase (ALT/SGPT) 19 U/L (14-59) Alkaline Phosphatase 86 U/L (46-116) Troponin I Quantitative < 0.017 ng/mL (0.000-0.055) Total Protein 7.8 g/dL (6.4-8.2) Albumin 3.6 g/dL (3.4-5.0) Albumin/Globulin Ratio 0.9 (1.0-1.7) Lipase 77 U/L (73-393) Urine Collection Type Unknown Urine Color Yellow Urine Clarity Turbid Urine pH 6.5 Urine Specific Cache 1.020 Urine Protein Negative mg/dL (NEG-TRACE) Urine Glucose (UA) Negative mg/dL (NEG) Urine Ketones (Stick) Negative mg/dL (NEG) Urine Blood Trace (NEG) Urine Nitrite Negative (NEG) Urine Bilirubin Negative (NEG) Urine Urobilinogen Dipstick 0.2 mg/dL (0.2 mg/dL) Urine Leukocyte Esterase Negative (NEG) Urine RBC 0 /HPF (0-2) Urine WBC 0 /HPF (0-4) Urine Squamous Epithelial Cells Mod /LPF Urine Bacteria 0 /HPF (0-FEW) Laboratory Tests Test 04/19/17 06:43 04/19/17 07:30 White Blood Count 14.5 x10^3/uL (4.0-11.0) Red Blood Count 5.22 x10^6/uL (3.50-5.40) Hemoglobin 14.5 g/dL (12.0-15.5) Hematocrit 44.9 % (36.0-47.0) Mean Corpuscular Volume 86 fL (79-100) Mean Corpuscular Hemoglobin 28 pg (25-35) Mean Corpuscular Hemoglobin Concent 32 g/dL (31-37) Red Cell Distribution Width 14.9 % (11.5-14.5) Platelet Count 332 x10^3/uL (140-400) Neutrophils (%) (Auto) 70 % (31-73) Lymphocytes (%) (Auto) 22 % (24-48) Monocytes (%) (Auto) 5 % (0-9) Eosinophils (%) (Auto) 3 % (0-3) Basophils (%) (Auto) 1 % (0-3) Neutrophils # (Auto) 10.1 x10^3uL (1.8-7.7) Lymphocytes # (Auto) 3.2 x10^3/uL (1.0-4.8) Monocytes # (Auto) 0.7 x10^3/uL (0.0-1.1) Eosinophils # (Auto) 0.4 x10^3/uL (0.0-0.7) Basophils # (Auto) 0.1 x10^3/uL (0.0-0.2) Sodium Level 144 mmol/L (136-145) Potassium Level 3.9 mmol/L (3.5-5.1) Chloride Level 105 mmol/L (98-107) Carbon Dioxide Level 30 mmol/L (21-32) Anion Gap 9 (6-14) Blood Urea Nitrogen 15 mg/dL (7-20) Creatinine 0.8 mg/dL (0.6-1.0) Estimated GFR (Cockcroft-Gault) 96.1 BUN/Creatinine Ratio 19 (6-20) Glucose Level 103 mg/dL (70-99) Calcium Level 9.3 mg/dL (8.5-10.1) Total Bilirubin 0.4 mg/dL (0.2-1.0) Aspartate Amino Transf (AST/SGOT) 13 U/L (15-37) Alanine Aminotransferase (ALT/SGPT) 19 U/L (14-59) Alkaline Phosphatase 86 U/L (46-116) Troponin I Quantitative < 0.017 ng/mL (0.000-0.055) Total Protein 7.8 g/dL (6.4-8.2) Albumin 3.6 g/dL (3.4-5.0) Albumin/Globulin Ratio 0.9 (1.0-1.7) Lipase 77 U/L (73-393) Urine Collection Type Unknown Urine Color Yellow Urine Clarity Turbid Urine pH 6.5 Urine Specific Cache 1.020 Urine Protein Negative mg/dL (NEG-TRACE) Urine Glucose (UA) Negative mg/dL (NEG) Urine Ketones (Stick) Negative mg/dL (NEG) Urine Blood Trace (NEG) Urine Nitrite Negative (NEG) Urine Bilirubin Negative (NEG) Urine Urobilinogen Dipstick 0.2 mg/dL (0.2 mg/dL) Urine Leukocyte Esterase Negative (NEG) Urine RBC 0 /HPF (0-2) Urine WBC 0 /HPF (0-4) Urine Squamous Epithelial Cells Mod /LPF Urine Bacteria 0 /HPF (0-FEW) VTE Prophylaxis Ordered VTE Prophylaxis Devices: Yes VTE Pharmacological Prophylaxi: No Assessment/Plan Assessment/Plan acute cholecystits, s/p lap lloyd htn morbid obesity nausea and vomitnig admit, IV pain meds, add toradol and tylenol will try to RHONDA Pan MD Apr 19, 2017 21:13
[2017-04-19] MEDS ORDERED: ACETAMINOPHEN 325 MG TABLET. PO PRN (21:15)
[2017-04-19] MEDS ORDERED: HYDROmorphone 2 MG/ML VIAL IVP PRN (21:15)
[2017-04-19] MEDS ORDERED: ACETAMINOPHEN 325 MG TABLET. PO ONE (21:30)
[2017-04-20] MEDS: HYDROmorphone 2 MG/ML VIAL IV PRN (01:40)
[2017-04-20 03:10] VITALS: BP 112/59
[2017-04-20 04:33] LABS: BASO % 0 % (0-3); EOS % 0 % (0-3); HEMATOCRIT 40.3 % (36.0-47.0); LYMPH # 1.6 x10^3/uL (1.0-4.8); LYMPH % 10 % (24-48); MEAN CORPUSCULAR HEMOGLOBIN 28 pg (25-35); MEAN CORPUSCULAR HGB CONC 32 g/dL (31-37); MEAN CORPUSCULAR VOLUME 87 fL (79-100); MONO % 4 % (0-9); NEUT % 87 % (31-73); PLATELET COUNT 329 x10^3/uL (140-400); RED BLOOD COUNT 4.63 x10^6/uL (3.50-5.40); WHITE BLOOD COUNT 16.5 x10^3/uL (4.0-11.0)
[2017-04-20 05:41] LABS: CALCIUM 7.8 mg/dL (8.5-10.1); CREATININE 0.7 mg/dL (0.6-1.0); GFR 112.1; POTASSIUM 4.5 mmol/L (3.5-5.1)
[2017-04-20] MEDS: POTASSIUM CL 20MEQ-0.45% NACL 1,000 ML IV SCH ×2 (05:53→11:57)
[2017-04-20 05:56] LABS: ALBUMIN 2.9 g/dL (3.4-5.0); DIRECT BILIRUBIN 0.1 mg/dL (0.0-0.2); TOTAL BILIRUBIN 0.4 mg/dL (0.2-1.0); TOTAL PROTEIN 6.7 g/dL (6.4-8.2)
[2017-04-20] MEDS: oxyCODONE/APAP 5/325 1 TAB TABLET PO PRN ×2 (06:13→07:32)
[2017-04-20 07:00] VITALS: BP 112/59
[2017-04-20] MEDS: DOCUSATE SODIUM 100 MG CAPSULE. PO SCH (07:32)
[2017-04-20 08:12] LABS: PLT ESTIMATE ADEQUATE (ADEQUATE)
[2017-04-20 11:24] VITALS: BP 112/64
--- NOTE | 2017-04-20 12:20 | PDOC ---
PROGRESS NOTES Chief Complaint Chief Complaint Abdominal pain Acute cholecystitis HTN History of Present Illness History of Present Illness DW nurse Probable DC Tolerating food VSS Wounds clean, dry, and intact Vitals Vitals Vital Signs Date Time Temp Pulse Resp B/P (MAP) Pulse Ox O2 Delivery O2 Flow Rate FiO2 04/20/17 11:24 97.5 72 18 112/64 (80) 99 Room Air 97.5 04/20/17 07:32 2.0 Physical Exam General: Alert, Oriented X3, Cooperative, mild distress, moderate distress Heart: Regular rate, Normal S1, Normal S2 Lungs: Clear Abdomen: Normal bowel sounds, Other (pain with deep inspiration, + sounds, noted tender) Extremities: No clubbing, No cyanosis, No edema, Normal pulses Skin: No breakdown, No significant lesion Labs LABS Laboratory Tests Test 04/20/17 03:45 White Blood Count 16.5 x10^3/uL (4.0-11.0) Red Blood Count 4.63 x10^6/uL (3.50-5.40) Hemoglobin 13.0 g/dL (12.0-15.5) Hematocrit 40.3 % (36.0-47.0) Mean Corpuscular Volume 87 fL (79-100) Mean Corpuscular Hemoglobin 28 pg (25-35) Mean Corpuscular Hemoglobin Concent 32 g/dL (31-37) Red Cell Distribution Width 15.0 % (11.5-14.5) Platelet Count 329 x10^3/uL (140-400) Neutrophils (%) (Auto) 87 % (31-73) Lymphocytes (%) (Auto) 10 % (24-48) Monocytes (%) (Auto) 4 % (0-9) Eosinophils (%) (Auto) 0 % (0-3) Basophils (%) (Auto) 0 % (0-3) Neutrophils # (Auto) 14.2 x10^3uL (1.8-7.7) Lymphocytes # (Auto) 1.6 x10^3/uL (1.0-4.8) Monocytes # (Auto) 0.6 x10^3/uL (0.0-1.1) Eosinophils # (Auto) 0.0 x10^3/uL (0.0-0.7) Basophils # (Auto) 0.0 x10^3/uL (0.0-0.2) Segmented Neutrophils % 82 % (35-66) Band Neutrophils % 1 % (0-9) Lymphocytes % 12 % (24-48) Monocytes % 5 % (0-10) Platelet Estimate Adequate (ADEQUATE) Sodium Level 140 mmol/L (136-145) Potassium Level 4.5 mmol/L (3.5-5.1) Chloride Level 105 mmol/L (98-107) Carbon Dioxide Level 24 mmol/L (21-32) Anion Gap 11 (6-14) Blood Urea Nitrogen 8 mg/dL (7-20) Creatinine 0.7 mg/dL (0.6-1.0) Estimated GFR (Cockcroft-Gault) 112.1 Glucose Level 125 mg/dL (70-99) Calcium Level 7.8 mg/dL (8.5-10.1) Total Bilirubin 0.4 mg/dL (0.2-1.0) Direct Bilirubin 0.1 mg/dL (0.0-0.2) Aspartate Amino Transf (AST/SGOT) 28 U/L (15-37) Alanine Aminotransferase (ALT/SGPT) 31 U/L (14-59) Alkaline Phosphatase 64 U/L (46-116) Total Protein 6.7 g/dL (6.4-8.2) Albumin 2.9 g/dL (3.4-5.0) Review of Systems Review of Systems Denies n/v/d/c Denies dyspnea Assessment and Plan Assessmemt and Plan Problems Medical Problems: (1) Acute cholecystitis Status: Acute (2) Acute cholecystitis Status: Acute Assessment Abdominal pain Acute cholecystitis HTN Plan Probable DC PT/OT Recheck labs Appreciate subspecialty Follow up with PCP in 1-2 weeks Continue home meds Problems: Comment Review of Relevant I have reviewed the following items toyin (where applicable) has been applied. Labs Laboratory Tests Test 04/19/17 06:43 04/19/17 07:30 04/20/17 03:45 White Blood Count 14.5 x10^3/uL (4.0-11.0) 16.5 x10^3/uL (4.0-11.0) Red Blood Count 5.22 x10^6/uL (3.50-5.40) 4.63 x10^6/uL (3.50-5.40) Hemoglobin 14.5 g/dL (12.0-15.5) 13.0 g/dL (12.0-15.5) Hematocrit 44.9 % (36.0-47.0) 40.3 % (36.0-47.0) Mean Corpuscular Volume 86 fL (79-100) 87 fL (79-100) Mean Corpuscular Hemoglobin 28 pg (25-35) 28 pg (25-35) Mean Corpuscular Hemoglobin Concent 32 g/dL (31-37) 32 g/dL (31-37) Red Cell Distribution Width 14.9 % (11.5-14.5) 15.0 % (11.5-14.5) Platelet Count 332 x10^3/uL (140-400) 329 x10^3/uL (140-400) Neutrophils (%) (Auto) 70 % (31-73) 87 % (31-73) Lymphocytes (%) (Auto) 22 % (24-48) 10 % (24-48) Monocytes (%) (Auto) 5 % (0-9) 4 % (0-9) Eosinophils (%) (Auto) 3 % (0-3) 0 % (0-3) Basophils (%) (Auto) 1 % (0-3) 0 % (0-3) Neutrophils # (Auto) 10.1 x10^3uL (1.8-7.7) 14.2 x10^3uL (1.8-7.7) Lymphocytes # (Auto) 3.2 x10^3/uL (1.0-4.8) 1.6 x10^3/uL (1.0-4.8) Monocytes # (Auto) 0.7 x10^3/uL (0.0-1.1) 0.6 x10^3/uL (0.0-1.1) Eosinophils # (Auto) 0.4 x10^3/uL (0.0-0.7) 0.0 x10^3/uL (0.0-0.7) Basophils # (Auto) 0.1 x10^3/uL (0.0-0.2) 0.0 x10^3/uL (0.0-0.2) Sodium Level 144 mmol/L (136-145) 140 mmol/L (136-145) Potassium Level 3.9 mmol/L (3.5-5.1) 4.5 mmol/L (3.5-5.1) Chloride Level 105 mmol/L (98-107) 105 mmol/L (98-107) Carbon Dioxide Level 30 mmol/L (21-32) 24 mmol/L (21-32) Anion Gap 9 (6-14) 11 (6-14) Blood Urea Nitrogen 15 mg/dL (7-20) 8 mg/dL (7-20) Creatinine 0.8 mg/dL (0.6-1.0) 0.7 mg/dL (0.6-1.0) Estimated GFR (Cockcroft-Gault) 96.1 112.1 BUN/Creatinine Ratio 19 (6-20) Glucose Level 103 mg/dL (70-99) 125 mg/dL (70-99) Calcium Level 9.3 mg/dL (8.5-10.1) 7.8 mg/dL (8.5-10.1) Total Bilirubin 0.4 mg/dL (0.2-1.0) 0.4 mg/dL (0.2-1.0) Aspartate Amino Transf (AST/SGOT) 13 U/L (15-37) 28 U/L (15-37) Alanine Aminotransferase (ALT/SGPT) 19 U/L (14-59) 31 U/L (14-59) Alkaline Phosphatase 86 U/L (46-116) 64 U/L (46-116) Troponin I Quantitative < 0.017 ng/mL (0.000-0.055) Total Protein 7.8 g/dL (6.4-8.2) 6.7 g/dL (6.4-8.2) Albumin 3.6 g/dL (3.4-5.0) 2.9 g/dL (3.4-5.0) Albumin/Globulin Ratio 0.9 (1.0-1.7) Lipase 77 U/L (73-393) Urine Collection Type Unknown Urine Color Yellow Urine Clarity Turbid Urine pH 6.5 Urine Specific [place] 1.020 Urine Protein Negative mg/dL (NEG-TRACE) Urine Glucose (UA) Negative mg/dL (NEG) Urine Ketones (Stick) Negative mg/dL (NEG) Urine Blood Trace (NEG) Urine Nitrite Negative (NEG) Urine Bilirubin Negative (NEG) Urine Urobilinogen Dipstick 0.2 mg/dL (0.2 mg/dL) Urine Leukocyte Esterase Negative (NEG) Urine RBC 0 /HPF (0-2) Urine WBC 0 /HPF (0-4) Urine Squamous Epithelial Cells Mod /LPF Urine Bacteria 0 /HPF (0-FEW) Segmented Neutrophils % 82 % (35-66) Band Neutrophils % 1 % (0-9) Lymphocytes % 12 % (24-48) Monocytes % 5 % (0-10) Platelet Estimate Adequate (ADEQUATE) Direct Bilirubin 0.1 mg/dL (0.0-0.2) Laboratory Tests Test 04/20/17 03:45 White Blood Count 16.5 x10^3/uL (4.0-11.0) Red Blood Count 4.63 x10^6/uL (3.50-5.40) Hemoglobin 13.0 g/dL (12.0-15.5) Hematocrit 40.3 % (36.0-47.0) Mean Corpuscular Volume 87 fL (79-100) Mean Corpuscular Hemoglobin 28 pg (25-35) Mean Corpuscular Hemoglobin Concent 32 g/dL (31-37) Red Cell Distribution Width 15.0 % (11.5-14.5) Platelet Count 329 x10^3/uL (140-400) Neutrophils (%) (Auto) 87 % (31-73) Lymphocytes (%) (Auto) 10 % (24-48) Monocytes (%) (Auto) 4 % (0-9) Eosinophils (%) (Auto) 0 % (0-3) Basophils (%) (Auto) 0 % (0-3) Neutrophils # (Auto) 14.2 x10^3uL (1.8-7.7) Lymphocytes # (Auto) 1.6 x10^3/uL (1.0-4.8) Monocytes # (Auto) 0.6 x10^3/uL (0.0-1.1) Eosinophils # (Auto) 0.0 x10^3/uL (0.0-0.7) Basophils # (Auto) 0.0 x10^3/uL (0.0-0.2) Segmented Neutrophils % 82 % (35-66) Band Neutrophils % 1 % (0-9) Lymphocytes % 12 % (24-48) Monocytes % 5 % (0-10) Platelet Estimate Adequate (ADEQUATE) Sodium Level 140 mmol/L (136-145) Potassium Level 4.5 mmol/L (3.5-5.1) Chloride Level 105 mmol/L (98-107) Carbon Dioxide Level 24 mmol/L (21-32) Anion Gap 11 (6-14) Blood Urea Nitrogen 8 mg/dL (7-20) Creatinine 0.7 mg/dL (0.6-1.0) Estimated GFR (Cockcroft-Gault) 112.1 Glucose Level 125 mg/dL (70-99) Calcium Level 7.8 mg/dL (8.5-10.1) Total Bilirubin 0.4 mg/dL (0.2-1.0) Direct Bilirubin 0.1 mg/dL (0.0-0.2) Aspartate Amino Transf (AST/SGOT) 28 U/L (15-37) Alanine Aminotransferase (ALT/SGPT) 31 U/L (14-59) Alkaline Phosphatase 64 U/L (46-116) Total Protein 6.7 g/dL (6.4-8.2) Albumin 2.9 g/dL (3.4-5.0) Medications Current Medications Sodium Chloride 1,000 ml @ 1,000 mls/hr 1X ONCE IV Last administered on 04/19 06:58; Start 04/19/17 at 07:00; Stop 04/19/17 at 07:59; Status DC Ondansetron HCl (Zofran) 4 mg 1X ONCE IV Last administered on 04/19/17 06:58 ; Start 04/19/17 at 07:00; Stop 04/19/17 at 07:01; Status DC Ketorolac Tromethamine (Toradol) 30 mg 1X ONCE IV Last administered on 06:58; Start 04/19/17 at 07:00; Stop 04/19/17 at 07:01; Status DC Fentanyl Citrate (Fentanyl 2ml Vial) 50 mcg PRN Q15MIN PRN IV PAIN GREATER THAN 3/10 Last administered on 04/19/17 07:52; Start 04/19/17 at 06:45; Stop 04/20/17 at 06:44; Status DC Piperacillin Sod/ Tazobactam Sod 4.5 gm/Sodium Chloride 100 ml @ 200 mls/hr 1X ONCE IV ; Start 04/19/17 at 08:30; Stop 04/19/17 at 08:59; Status UNV Piperacillin Sod/ Tazobactam Sod (Zosyn) 4.5 gm 1X ONCE IVP Last administered on 04/19/17 08:44; Start 04/19/17 at 08:30; Stop 04/19/17 at 08:31; Status DC Ondansetron HCl (Zofran) 4 mg PRN Q8HRS PRN IV NAUSEA/VOMITING Last administered on 04/19/17 08:54; Start 04/19/17 at 08:45; Stop 04/20/17 at 08 :44; Status DC Morphine Sulfate 4 mg PRN Q2HR PRN IV PAIN Last administered on 04/19/17 16: 01; Start 04/19/17 at 08:45; Stop 04/20/17 at 08:44; Status DC Cefazolin Sodium 3 gm/Dextrose 100 ml @ 200 mls/hr 1X PREOP PRN IV PER PROTOCOL Last administered on 04/19/17 13:40; Start 04/19/17 at 11:30; Stop 04/20/17 at 11:29; Status DC Fentanyl Citrate (Fentanyl 2ml Vial) 100 mcg PRN Q2HR PRN IV PAIN Last administered on 04/19/17 16:19; Start 04/19/17 at 10:45 Sodium Chloride 1,000 ml @ 125 mls/hr 1X ONCE IV Last administered on 11:03; Start 04/19/17 at 10:45; Stop 04/19/17 at 18:44; Status DC Rocuronium [place] (Zemuron) 50 mg STK-MED ONCE .ROUTE ; Start 04/19/17 at 12: 49; Stop 04/19/17 at 12:50; Status DC Fentanyl Citrate (Fentanyl 2ml Vial) 100 mcg STK-MED ONCE .ROUTE ; Start at 12:49; Stop 04/19/17 at 12:50; Status DC Sevoflurane (Ultane) 30 ml STK-MED ONCE IH ; Start 04/19/17 at 12:49; Stop at 12:50; Status DC Ondansetron HCl (Zofran) 4 mg STK-MED ONCE .ROUTE ; Start 04/19/17 at 12:49; Stop 04/19/17 at 12:50; Status DC Lidocaine HCl (Lidocaine Pf 2% Vial) 5 ml STK-MED ONCE .ROUTE ; Start 04/19/17 at 12:49; Stop 04/19/17 at 12:50; Status DC Dexamethasone Sodium Phosphate (Decadron) 20 mg STK-MED ONCE .ROUTE ; Start at 12:50; Stop 04/19/17 at 12:51; Status DC Propofol 20 ml @ As Directed STK-MED ONCE IV ; Start 04/19/17 at 12:50; Stop 04/19/17 at 12:51; Status DC Bupivacaine HCl/ Epinephrine Bitart (Sensorcain-Mpf Epi 0.5%-1:213523) 30 ml STK -MED ONCE .ROUTE Last administered on 04/19/17 13:59; Start 04/19/17 at 13: 35; Stop 04/19/17 at 13:36; Status DC Glucagon (Glucagen) 1 mg STK-MED ONCE .ROUTE ; Start 04/19/17 at 13:35; Stop 04/19/17 at 13:36; Status DC Iohexol (Omnipaque 300 Mg/ml) 100 ml STK-MED ONCE .ROUTE Last administered on 04/19/17 13:59; Start 04/19/17 at 13:35; Stop 04/19/17 at 13:36; Status DC Cellulose 1 each STK-MED ONCE .ROUTE Last administered on 04/19/17 13:59; Start 04/19/17 at 13:36; Stop 04/19/17 at 13:37; Status DC Neostigmine Methylsulfate (Bloxiverz) 10 mg STK-MED ONCE .ROUTE ; Start at 14:21; Stop 04/19/17 at 14:22; Status DC Fentanyl Citrate (Fentanyl 2ml Vial) 100 mcg STK-MED ONCE .ROUTE ; Start at 14:21; Stop 04/19/17 at 14:22; Status DC Glycopyrrolate (Robinul) 1 mg STK-MED ONCE .ROUTE ; Start 04/19/17 at 14:21; Stop 04/19/17 at 14:22; Status DC Lidocaine HCl (Lidocaine Pf 2% Vial) 5 ml STK-MED ONCE .ROUTE ; Start 04/19/17 at 15:18; Stop 04/19/17 at 15:19; Status DC Ondansetron HCl (Zofran) 4 mg PRN Q6HRS PRN IV NAUSEA/VOMITING; Start at 16:00; Stop 04/20/17 at 15:59 Fentanyl Citrate (Fentanyl 2ml Vial) 25 mcg PRN Q5MIN PRN IV MILD PAIN; Start 04/19/17 at 16:00; Stop 04/20/17 at 15:59 Fentanyl Citrate (Fentanyl 2ml Vial) 50 mcg PRN Q5MIN PRN IV MODERATE TO SEVERE PAIN; Start 04/19/17 at 16:00; Stop 04/20/17 at 15:59 Morphine Sulfate 1 mg PRN Q10MIN PRN IV SEVERE PAIN; Start 04/19/17 at 16:00; Stop 04/20/17 at 15:59 Ringer's Solution 1,000 ml @ 30 mls/hr Q24H IV ; Start 04/19/17 at 15:52; Stop 04/20/17 at 03:51; Status DC Lidocaine HCl (Xylocaine-Mpf 1% Vial) 2 ml 1X PRN PRN ID IV START; Start 04/19 at 16:00; Stop 04/20/17 at 15:59 Hydromorphone HCl (Dilaudid) 0.5 mg PRN Q10MIN PRN IV SEV PAIN, Second choice Last administered on 04/19/17t 20:44; Start 04/19/17 at 16:00; Stop 04/19/17 at 21:06; Status DC Prochlorperazine Edisylate (Compazine) 5 mg PACU PRN PRN IV NAUSEA, MRX1; Start 04/19/17 at 16:00; Stop 04/20/17 at 15:59 Fentanyl Citrate (Fentanyl 2ml Vial) 100 mcg STK-MED ONCE .ROUTE ; Start at 16:08; Stop 04/19/17 at 16:09; Status DC Diphenhydramine HCl (Benadryl) 25 mg PRN Q6HRS PRN PO ITCHING; Start 04/19/17 at 16:15 Diphenhydramine HCl (Benadryl) 25 mg PRN Q6HRS PRN IV ITCHING; Start 04/19/17 at 16:15 Enoxaparin Sodium (Lovenox 60mg Syringe) 60 mg Q12HR SQ Last administered on 10:30; Start 04/20/17 at 09:00 Sodium Chloride (Normal Saline Flush) 3 ml QSHIFT PRN IV AFTER MEDS AND BLOOD DRAWS; Start 04/19/17 at 16:15 Potassium Chloride/Sodium Chloride 1,000 ml @ 100 mls/hr Q10H IV Last administered on 04/20/17 05:53; Start 04/19/17 at 16:06 Dextrose (Dextrose 50%-Water Syringe) 12.5 gm PRN Q15MIN PRN IV SEE COMMENTS; Start 04/19/17 at 16:15 Oxycodone/ Acetaminophen (Percocet 5/325) 1 tab PRN Q4HRS PRN PO MILD PAIN, 1ST CHOICE Last administered on 04/20/17 07:32; Start 04/19/17 at 16:15 Oxycodone/ Acetaminophen (Percocet 5/325) 2 tab PRN Q4HRS PRN PO MODERATE PAIN , SEVERE PAIN; Start 04/19/17 at 16:15 Hydromorphone HCl (Dilaudid) 1 mg Q3HRS PRN IV PAIN Last administered on 01:40; Start 04/19/17 at 16:15 Docusate Sodium (Colace) 100 mg BID PO Last administered on 04/20/17 07:32; Start 04/19/17 at 21:00 Ondansetron HCl (Zofran) 4 mg PRN Q6HRS PRN IV NAUESA, 1ST CHOICE; Start 04/19 at 16:15 Hydromorphone HCl (Dilaudid) 1 mg PRN Q4HRS PRN IVP SEVERE PAIN; Start at 21:15 Ketorolac Tromethamine (Toradol) 30 mg 1X ONCE IV Last administered on 21:20; Start 04/19/17 at 21:30; Stop 04/19/17 at 21:31; Status DC Acetaminophen (Tylenol) 650 mg 1X ONCE PO Last administered on 12/23/17at 21: 21; Start 04/19/17 at 21:30; Stop 04/19/17 at 21:31; Status DC Acetaminophen (Tylenol) 650 mg PRN Q6HRS PRN PO MILD PAIN; Start 04/19/17 at 21:15 Active Scripts Active Cyclobenzaprine Hcl 10 Mg Tablet 10 Mg PO TID Vitals/I & O Vital Sign - Last 24 Hours 04/19/17 04/19/17 04/19/17 04/19/17 13:01 15:42 15:42 15:57 Temp 97.2 97.9 97.2 97.9 Pulse 77 60 65 Resp 20 20 20 B/P (MAP) 144/97 152/80 147/81 Pulse Ox 100 100 92 O2 Delivery Room Air Simple Mask Mask Simple Mask O2 Flow Rate 10 10 10 04/19/17 04/19/17 04/19/17 04/19/17 16:01 16:12 16:19 16:27 Pulse 66 57 Resp 20 20 20 20 B/P (MAP) 140/77 127/72 Pulse Ox 97 90 92 98 O2 Delivery Simple Mask Simple Mask Nasal Cannula Nasal Cannula O2 Flow Rate 10.0 10 2.0 2 04/19/17 04/19/17 04/19/17 04/19/17 16:33 16:42 17:00 17:03 Temp 97.5 97.5 Pulse 56 Resp 20 16 16 B/P (MAP) 139/75 Pulse Ox 99 98 98 O2 Delivery Nasal Cannula Room Air Nasal Cannula Nasal Cannula O2 Flow Rate 2 2.0 2.0 04/19/17 04/19/17 04/19/17 04/19/17 17:10 17:24 17:33 17:38 Temp 97.5 97.5 Pulse 62 63 61 Resp 16 16 16 B/P (MAP) 123/71 (88) 125/76 (92) 115/70 (85) Pulse Ox 95 95 98 96 O2 Delivery Room Air Room Air Room Air O2 Flow Rate 2.0 04/19/17 04/19/17 04/19/17 04/19/17 17:52 18:02 18:34 20:00 Pulse 61 70 57 87 Resp 16 16 16 B/P (MAP) 124/73 (90) 115/68 (84) 136/83 (100) 135/76 (95) Pulse Ox 96 98 100 99 O2 Delivery Room Air Room Air Room Air Room Air 04/19/17 04/19/17 04/19/17 04/19/17 20:36 20:44 21:10 22:00 Temp Pulse 73 63 Resp 18 B/P (MAP) 123/75 (91) 133/73 (93) Pulse Ox 99 99 95 O2 Delivery Nasal Cannula Room Air Room Air O2 Flow Rate 2.0 04/19/17 04/20/17 04/20/17 04/20/17 23:00 01:40 02:10 03:10 Temp 97.5 97.5 Pulse 73 61 Resp 18 18 16 B/P (MAP) 111/55 (73) 112/59 (76) Pulse Ox 96 95 O2 Delivery Room Air Room Air Nasal Cannula Room Air 04/20/17 04/20/17 04/20/17 04/20/17 06:13 07:00 07:21 07:32 Temp 97.5 97.5 Pulse 61 Resp 18 16 B/P (MAP) 112/59 (76) Pulse Ox 95 95 O2 Delivery Room Air Nasal Cannula Nasal Cannula Nasal Cannula O2 Flow Rate 2.0 2.0 04/20/17 04/20/17 08:32 11:24 Temp 97.5 97.5 Pulse 72 Resp 16 18 B/P (MAP) 112/64 (80) Pulse Ox 95 99 O2 Delivery Room Air Intake and Output 04/19/17 04/19/17 04/20/17 14:59 22:59 06:59 Intake Total 100 ml 1700 ml 500 ml Output Total 50 ml 0 ml Balance 100 ml 1650 ml 500 ml GILBERT REYNOSO III DO Apr 20, 2017 12:20
[2017-04-20] MEDS ORDERED: HYDR-2758 PO (14:29)
[2017-04-20 14:38] VITALS: BP 102/52
--- NOTE | 2017-04-23 13:21 | PATHOLOGY ---
PATHOLOGY REPORT * * * * * * * * FINAL DIAGNOSIS: Gallbladder, laparoscopic cholecystectomy: - Cholelithiasis. - Chronic and focal acute cholecystitis. COMMENT: There is no evidence of malignancy. (JPM:mgrick; 04/23/2017) REPORT ELECTRONICALLY SIGNED BY: Nader Amaral M.D. DATE/TIME: 04/23/2017 13:18 * * * * * * * * GROSS PATHOLOGY: Received in formalin labeled "Blayne Doshi, gallbladder," is a 5.9 x 2.7 x 2.7 cm, previously opened gallbladder with pink-baez serosal surfaces. Opening the gallbladder reveals a velvety, light simon mucosa and an average wall thickness of 0.1 cm. A single light green, granular calculus is present, and no masses are noted grossly. [employer] sections from the body and fundus are submitted along with the proximal margin in cassette A1. (CAA; 04/22/2017) INITIAL CPT CODE(S): A; 84241 Professional services performed [place] [facility] [place] [address] Technical services performed by [facility] at [address] [place] [address] [address] [address]. SPECIMEN(S) RECEIVED: A.Gallbladder CLINICAL HISTORY: Acute cholecystitis PATIENT: BLAYNE DOSHI /AGE: 12 1975 (Age: 42) PATIENT #: [id number] ALT CASE #: SPECIMEN COLLECTION DATE: 04/19/2017 SPECIMEN RECEIVED DATE: 04/22/2017 [facility] - [address] [place] [address] - PHONE: [phone] * * * END OF REPORT * * *
== END 2017-04-20 11:30 | disposition home or self-care (01) | DRG 418 ==
LOC: ER 06:16 → 6 SOUTH 08:28 → ER 09:18
PROVIDERS: ADMIT Internal Medicine; ATTEND Internal Medicine
PROC: BF101ZZ Fluoroscopy of Bile Ducts using Low Osmolar Contrast (ICD-10-PCS; 2017-04-19)
PROC: 0FT44ZZ Resection of Gallbladder, Percutaneous Endoscopic Approach (ICD-10-PCS; principal; 2017-04-19 12:00)
DX: K80.00 Calculus of gallbladder with acute cholecystitis without obstruction (principal); Z68.43 Body mass index [BMI] 50.0-59.9, adult; E66.01 Morbid (severe) obesity due to excess calories; K66.0 Peritoneal adhesions (postprocedural) (postinfection); I10 Essential (primary) hypertension; M54.5 Low back pain; K82.8 Other specified diseases of gallbladder; Z82.49 Family history of ischemic heart disease and other diseases of the circulatory system; Z98.51 Tubal ligation status
CPT/HCPCS: 36415; 74300; 76705; 80048; 80053; 80076; 81001; 81025; 83690; 84484; 85007; 85025; 93005; 96361; 96374; 96375; 96376; C1769; J0690; J1100; J1170; J1610; J1650; J1885; J2270; J2405; J2543; J2704; J2710; J3010; J3490; J7030; Q9967; 99285-25; J2001